=== PATIENT | female | born 1950 | race Asian ===

== ENCOUNTER 2016-06-17 07:00 | Outpatient (RCR) | payer OTHER | END 2016-06-21 | disposition home or self-care (01) | LOC: PTY 07:00 | DX: M53.3 Sacrococcygeal disorders, not elsewhere classified (principal); S83.206D Unspecified tear of unspecified meniscus, current injury, right knee, subsequent encounter; M81.0 Age-related osteoporosis without current pathological fracture; I10 Essential (primary) hypertension | CPT/HCPCS: 97110; 97140; 97162; G0283 ==

== ENCOUNTER 2016-06-24 07:52 | Outpatient (RCR) | payer OTHER | END 2016-07-22 | disposition home or self-care (01) | LOC: PTY 07:52 | DX: M53.3 Sacrococcygeal disorders, not elsewhere classified (principal) | CPT/HCPCS: 97110; 97140; G0283 ==

== ENCOUNTER 2016-07-24 08:00 | Outpatient (RCR) | payer OTHER | END 2016-08-21 | disposition home or self-care (01) | LOC: PTY 08:00 | DX: M53.3 Sacrococcygeal disorders, not elsewhere classified (principal) | CPT/HCPCS: 97110; 97140; G0283 ==

== ENCOUNTER 2016-08-28 08:11 | Outpatient (RCR) | payer OTHER | END 2016-09-21 | disposition home or self-care (01) | LOC: PTY 08:11 | DX: M53.3 Sacrococcygeal disorders, not elsewhere classified (principal); I10 Essential (primary) hypertension; M54.5 Low back pain; M81.0 Age-related osteoporosis without current pathological fracture | CPT/HCPCS: 97110; 97140; G0283 ==

== ENCOUNTER 2016-12-15 08:30 | Outpatient (RCR) | payer OTHER | END 2016-12-22 | disposition home or self-care (01) | LOC: PTY 08:30 | DX: M53.3 Sacrococcygeal disorders, not elsewhere classified (principal); M62.838 Other muscle spasm | CPT/HCPCS: 97110; 97140; 97162; G0283 ==

== ENCOUNTER 2017-01-19 08:23 | Outpatient (RCR) | payer OTHER | END 2017-01-21 | disposition home or self-care (01) | LOC: PTY 08:23 | DX: M53.3 Sacrococcygeal disorders, not elsewhere classified (principal); M62.838 Other muscle spasm | CPT/HCPCS: 97110; 97112; 97140; G0283 ==

== ENCOUNTER 2017-01-29 08:00 | Outpatient (RCR) | payer OTHER | END 2017-02-21 | disposition home or self-care (01) | LOC: PTY 08:00 | DX: M53.3 Sacrococcygeal disorders, not elsewhere classified (principal); M62.838 Other muscle spasm | CPT/HCPCS: 97110; 97112; 97140; G0283 ==